=== PATIENT | male | born 1950 | race Caucasian/White ===

== ENCOUNTER 2024-09-16 04:24 | Emergency (ER) | payer MEDICARE ==
[~2024-09-16] VITALS: Ht 175.3 cm; Wt 75.5 kg
[~2024-09-16 04:24] MED LIST: ALBU8HFA PO; CITA20TA28 PO; DEC4T PO; TAMS0.4C32 PO; ZOLP5TAB8 PO
[2024-09-16 04:26] VITALS: TEMP 97.6
[2024-09-16] MEDS: LidoCAINE 2% Topical Jelly 11mL syringe (UROJET) TOP ONE (04:52)
[2024-09-16] MEDS ORDERED: CHLO50TA PO (04:59)
[2024-09-16] MEDS ORDERED: ESCI20TA39 PO (04:59)
[2024-09-16] MEDS ORDERED: ATOR-2 PO (04:59)
[2024-09-16 05:08] LABS: BILIRUBIN,URINE NEGATIVE (Neg); CLARITY,URINE CLEAR (Clear); COLOR,URINE YELLOW (Yellow); GLUCOSE, URINE NEGATIVE (Neg); KETONES,URINE NEGATIVE (Neg); LEUKOCYTE ESTERASE ,URINE NEGATIVE (Neg); NITRITES, URINE NEGATIVE (Neg); OCCULT BLOOD,URINE MODERATE (Neg); PROTEIN,URINE NEGATIVE (Neg); UROBILINOGEN,URINE 0.2 E.U/dL (0.2-1.0)
[2024-09-16 05:09] LABS: UA COLLECTION TYPE CLN CATCH MIDSTREAM
[2024-09-16 05:13] LABS: SQUAMOUS EPITHELIAL CELL,UR FEW /LPF (FEW)
[2024-09-16 05:14] LABS: BACTERIA,URINE FEW /HPF (Neg); WBC,URINE 0-4 /HPF (0-4)
[2024-09-16 05:45] VITALS: BP 131/81; PULSE 87; RESP 16; O2SAT 96
== END 2024-09-16 05:52 | disposition home or self-care (01) ==
LOC: ER 04:24
DX: R33.9 Retention of urine, unspecified (principal); I10 Essential (primary) hypertension; J45.909 Unspecified asthma, uncomplicated; Z90.89 Acquired absence of other organs; Z79.899 Other long term (current) drug therapy; Z72.89 Other problems related to lifestyle
CPT/HCPCS: 51702; 81001; 99284